=== PATIENT | male | born 1970 | race Caucasian/White ===

== ENCOUNTER → 2021-06-21 | Outpatient (CLI) | payer OTHER ==
[~2021-06-21] MED LIST: LORA5TAB7 PO
--- NOTE | 2021-06-21 14:03 | PDOC1 ---
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 Patient reports he has significant pain in the left leg in the medial aspect of the lower leg below the knee to the ankle to the top of the ankle and posteriorly in the left gastrocnemius as well at that time. Patient reports he was not able to rest it much as he was on active duty continued to exercising with stretching and strengthening now describes the pain is becoming more significant and more noticeable over the past few months with increased activity and increased use of the left lower extremity in these activities for duty. Patient scribes a sharp and throbbing with numbness and tingling in the left leg intermittent in intensity but always present with cramping with exertion as well patient reports it is noticeable when walking backwards or pulling an item for some of his physical ability requirements for the . Patient reports that it is worse with climbing hills and walking down hills and putting any type of pressure on the left medial calf. Patient rates his disability rating 0-10 10 me the worst is a 5 with recreational activities and fourth occupational activities 0 and all other categories. Patient reports he has had no physical therapy no treatments performed, no other evaluations performed since the injury. PAST MEDICAL HISTORY: PMH: Arthritis, hearing loss PREVIOUS SURGERIES: Past Surgical Hx: None CURRENT MEDICATIONS: Current Meds: See chart FAMILY HISTORY: Family Hx: No major medical problems or conditions that he is aware of. SOCIAL HISTORY: Social Hx: Patient drinks alcohol 1 or 2 drinks a week does not smoke any illegal illicit recreational drugs lives with his spouse lives locally in [facility] and is active duty. REVIEW OF SYSTEMS: ROS: Positive for those items mentioned in history of present illness, all systems are reviewed, otherwise negative ,and are complete full and well-documented on patient's chart. PHYSICAL EXAM: VS: Blood pressure is 130/79 pulse 74 respirations 16 temperature is 98.3 F height is 5 feet 6 inches weight 198 pounds PE: PHYSICAL EXAMINATION: GENERAL: The patient is awake, alert, oriented, appropriate, very pleasant in demeanor HEENT: Shows normocephalic, atraumatic. Extraocular movements are intact and symmetrical. Oral cavity: Mucous membranes moist and pink. Dentition is intact. NECK: Shows anterior throat supple without palpable lymphadenopathy noted. Swallow reflex symmetrical. CHEST: Shows normal on inspection. Breath sounds are clear bilaterally, distant no rales rhonchi or wheezes auscultated. HEART: Shows S1, S2 clear. No murmurs auscultated. ABDOMEN: Soft, nontender, nondistended. No palpable organomegaly is noted. No rebound or guarding demonstrated. BACK: Shows spine grossly in the midline. Normal-appearing cervical lordotic curvature. There is slightly increased thoracic kyphosis, some minor flattening of the lumbar lordotic curvature. EXTREMITIES: Lower extremities show deep tendon reflexes 2+ in the patellar and tendo calcaneus tendons. Motor exam is 5 on a scale of 5 with right dorsiflexion, extension, quadriceps and hamstring flexion and 5/5 on the left. Peripheral pulses are 2+ posterior tibial. No peripheral edema is noted bilaterally. Lower extremities are warm and dry to touch, equal in color and appearance. Patient has slight hypertrophied appearance with flexion of the left gastroc in the medial head of the lateral aspect of the medial head of the gastroc muscle. SKIN: Shows warm and dry, good turgor. No edema. No sores, rashes or bruising throughout. 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 Arthritis Hearing loss Plan: Options were discussed with the patient and we will refer for physical therapy as he has had no treatment for this injury since the date of the injury in 2018. If not significantly improved after ultrasound treatment and massage as well as stretching strengthening, will recommend sports analyst evaluation. Patient understands and agrees and will start physical therapy as ordered. DANTE TURNER MD Jun 21, 2021 14:03
== END | disposition home or self-care (01) ==
LOC: PNCL 13:13
PROVIDERS: ATTEND Anesthesiology
DX: M79.605 Pain in left leg (principal); M19.90 Unspecified osteoarthritis, unspecified site; Z79.899 Other long term (current) drug therapy
CPT/HCPCS: 99205; G0463